=== PATIENT | male | born 1995 | race Caucasian/White ===

== ENCOUNTER 2019-01-26 20:00 | Emergency (ER) | payer SELFPAY ==
[~2019-01-26] VITALS: Ht 180.3 cm; Wt 81.6 kg
[2019-01-26 20:47] VITALS: BP 134/69
== END 2019-01-26 21:30 | disposition left against medical advice (07) ==
LOC: ER 20:03
DX: M54.5 Low back pain (principal); Z53.21 Procedure and treatment not carried out due to patient leaving prior to being seen by health care provider; V43.62XA Car passenger injured in collision with other type car in traffic accident, initial encounter; Y93.89 Activity, other specified; Y99.8 Other external cause status; Y92.410 Unspecified street and highway as the place of occurrence of the external cause